=== PATIENT | female | born 1950 | race Hispanic/Latino ===

== ENCOUNTER 2025-06-10 06:55 | Day surgery (SDC) | payer OTHER, MEDICAID ==
[2025-06-10] VITALS (10 sets, daily range): BP systolic 95–154; BP diastolic 50–66; PULSE 61–76; RESP 14–16; TEMP 97.3–98
[~2025-06-10] VITALS: Ht 149.9 cm; Wt 102.1 kg
[2025-06-10] MEDS ORDERED: INSU100V37 SQ (08:18)
[2025-06-10] MEDS ORDERED: URSO300C4 PO (08:18)
[2025-06-10] MEDS ORDERED: SEMA1PEN3 SQ (08:18)
[2025-06-10] MEDS ORDERED: TORS20TA4 PO (08:18)
[2025-06-10] MEDS ORDERED: LINA290C PO (08:18)
[2025-06-10] MEDS ORDERED: FURO40TA5 PO (08:18)
[2025-06-10] MEDS ORDERED: ASPI-1005 PO (08:21)
[2025-06-10] MEDS ORDERED: PANT40TA54 PO (08:21)
[2025-06-10] MEDS ORDERED: CARV3.12 PO (08:21)
[2025-06-10] MEDS ORDERED: SPIR25TA6 PO (08:21)
[2025-06-10] MEDS ORDERED: CLOP75TA32 PO (08:21)
[2025-06-10] MEDS ORDERED: CYAN-35 PO (08:21)
[2025-06-10] MEDS ORDERED: LOSA25TA41 PO (08:21)
[2025-06-10] MEDS ORDERED: FOLI1TAB85 PO (08:21)
[2025-06-10] MEDS ORDERED: PREG100C56 PO (08:21)
[2025-06-10] MEDS ORDERED: ATOR40TA69 PO (08:21)
[2025-06-10] MEDS: 0.9%NACL 1000ML 1,000 ML IV ONE (08:22)
--- NOTE | 2025-06-10 10:31 | NUR ---
Full and complete discharge instructions given to Patient and CaregiverTamra both verbally and in writing. Tolerated fluids and voided in bathroom. PIV removed with catheter tip intact. W/C to POV with Caregiver to home.
== END 2025-06-10 10:30 | disposition home or self-care (01) ==
LOC: DAH 06:55 → ENDO 06:55
PROVIDERS: ATTEND Internal Medicine Gastroenterology
DX: I85.00 Esophageal varices without bleeding (principal); K29.50 Unspecified chronic gastritis without bleeding; K31.89 Other diseases of stomach and duodenum; K76.6 Portal hypertension; I25.10 Atherosclerotic heart disease of native coronary artery without angina pectoris; E78.00 Pure hypercholesterolemia, unspecified; E11.9 Type 2 diabetes mellitus without complications; K59.04 Chronic idiopathic constipation; Z98.891 History of uterine scar from previous surgery; Z86.2 Personal history of diseases of the blood and blood-forming organs and certain disorders involving the immune mechanism; Z95.0 Presence of cardiac pacemaker; Z88.8 Allergy status to other drugs, medicaments and biological substances; Z79.899 Other long term (current) drug therapy; Z98.890 Other specified postprocedural states
CPT/HCPCS: 82948 ×2; 43239; 43244; J7030 ×2; J2704; A4620; A4215 ×2; A4223; A4657; A7002; A4222; A4221; A4663; A4606; J3490

== ENCOUNTER 2025-07-07 06:34 | Day surgery (SDC) | payer OTHER, MEDICAID ==
[~2025-07-07] VITALS: Ht 149.9 cm; Wt 104.3 kg
[2025-07-07] VITALS (11 sets, daily range): BP systolic 83–136; BP diastolic 39–56; PULSE 64–72; RESP 12–17; TEMP 97–97.6
[2025-07-07] MEDS: 0.9%NACL 1000ML 1,000 ML IV ONE (07:17)
== END 2025-07-07 09:31 | disposition home or self-care (01) ==
LOC: DAH 06:34 → ENDO 06:34
PROVIDERS: ATTEND Internal Medicine Gastroenterology
DX: I85.00 Esophageal varices without bleeding (principal); K31.89 Other diseases of stomach and duodenum; K74.5 Biliary cirrhosis, unspecified; K76.6 Portal hypertension; K22.89 Other specified disease of esophagus; K29.30 Chronic superficial gastritis without bleeding; K59.04 Chronic idiopathic constipation; E78.00 Pure hypercholesterolemia, unspecified; E11.9 Type 2 diabetes mellitus without complications; I25.10 Atherosclerotic heart disease of native coronary artery without angina pectoris; Z86.2 Personal history of diseases of the blood and blood-forming organs and certain disorders involving the immune mechanism; Z95.0 Presence of cardiac pacemaker; Z98.891 History of uterine scar from previous surgery; Z88.8 Allergy status to other drugs, medicaments and biological substances; Z79.899 Other long term (current) drug therapy; Z98.890 Other specified postprocedural states
CPT/HCPCS: 82948 ×2; 43235; J7030; J2704 ×2; A4620; A4215; J3490